=== PATIENT | male | born 1985 | race African-American/Black ===

== ENCOUNTER 2019-12-15 13:24 | Outpatient (REF) | payer MEDICAID, SELFPAY ==
--- NOTE | 2019-12-15 13:38 | US_ITS ---
EXAMINATION: US SCROTUM CLINICAL INFORMATION: Scrotal pain. COMPARISON: None TECHNIQUE: A sonogram of the scrotum was performed assessing pinedo-scale appearance and color Doppler flow. Spectral Doppler analysis of the arterial and venous flow were performed in the testes bilaterally. FINDINGS: RIGHT: Right testicle measures 3.66 x 1.78 x 2.73 cm, volume 9.30 mL. No focal testicular parenchymal lesions are visualized. Spectral Doppler analysis of the arterial and venous flow is normal in the right testis. Right epididymal head is normal in size. Small right varicocele is visualized. There is a small right hydrocele. Mild septation is seen in the right hydrocele. Right epididymal Doppler flow is normal. LEFT: Left testicle measures 3.81 x 1.64 x 2.60 cm, volume 8.49 mL. No focal testicular parenchymal lesions are visualized. Spectral Doppler analysis of the arterial and venous flow is normal in the left testis. Left epididymal head is normal in size. Small left varicocele is seen. There is a small left hydrocele. Left epididymal Doppler flow is normal. US/US scrotum IMPRESSION: Bilateral hydroceles with mild septation in the right hydrocele. Bilateral varicoceles. The testes are symmetrical and unremarkable.
== END 2019-12-15 13:25 | disposition home or self-care (01) ==
LOC: HO.US 13:24
PROVIDERS: Visit Provider Internal Medicine Rheumatology
DX: N49.2 Inflammatory disorders of scrotum (principal); N50.82 Scrotal pain
CPT/HCPCS: 76870

== ENCOUNTER 2020-07-04 19:06 | Emergency (ER) | payer MEDICAID, SELFPAY ==
[2020-07-04 19:28] VITALS: BP 127/71; PULSE 85; RESP 16; TEMP 36.6; O2SAT 99; BMI 25.8
--- NOTE | 2020-07-04 22:15 | ED.SKABFB ---
HPI - Skin/Abscess/Foreign Bdy General Chief complaint: Skin/Abscess/Foreign Body Stated complaint: neck pain Time Seen by Provider: 07/04/20 22:15 Source: patient Mode of arrival: ambulatory Limitations: no limitations History of Present Illness HPI narrative: Patient is a 35-year-old male with no significant past medical history who has an itchy rash on the left side of his neck and behind his left ear times 2-3 weeks. He has used Neosporin with no relief. He denies fevers. Patient denies using any new perfumes, lotions, detergents, soaps, new clothing, or shampoo. Related Data Allergies Allergy/AdvReac Type Severity Reaction Status Date / Time No Known Allergies Allergy Unverified 11/11/19 18:54 [No Known Allergies*] Review of Systems Review of Systems: Yes all other systems are reviewed and are negative FORMERLY [facility] Past Medical History Medical History No known health problems Social History Social History Advance Directives: No Physical Exam Vital Signs: Vital Signs: Last Vital Signs Temp 97.8 F 07/04/20 19:28 Pulse 85 07/04/20 19:28 Resp 16 07/04/20 19:28 BP 127/71 07/04/20 19:28 Pulse Ox 99 07/04/20 19:28 Body Mass Index 25.8 Const: General: cooperative, healthy appearing, comfortable and no acute distress Nutritional Appearance: average body habitus Orientation/consciousness: patient oriented x3 HENMT: Head: Yes normal to inspection Ears: hearing grossly normal bilaterally and external ear abnormal (3 small red bumps on left posterior earlobe) Eyes: General: appearance normal, both eyes and all related structures Skin: Other: 10 cm x 6 cm area of brownish pinedo patch of small bumps on the left side of neck Neuro: General: patient oriented x3 Discharge Plan Discharge Clinical Impression: Eczema Qualifiers: Eczema type: unspecified Qualified Code(s): L30.9 - Dermatitis, unspecified Patient Disposition: Home, Self-Care Instructions: Eczema (ED) Additional Instructions: Please use a petroleum based ointment 3 times a day, keeping the area moist will reduce the itchiness and help the rash resolved. Please do not take long hot showers and this may make the rash worse. It is not clearing up in the next week, please see your primary care doctor or marble and granite polisher.
== END 2020-07-04 22:34 | disposition home or self-care (01) ==
PROVIDERS: Emergency Provider Internal Medicine
DX: L30.9 Dermatitis, unspecified (principal)
CPT/HCPCS: 99282; 99284

== ENCOUNTER → 2020-08-07 10:43 | Outpatient (BNVA) | payer SELFPAY | PROVIDERS: Visit Provider Physician Assistant Medical | DX: Z02.79 Encounter for issue of other medical certificate (principal) ==

== ENCOUNTER 2021-01-26 12:57 | Outpatient (REF) | payer MEDICAID, SELFPAY ==
--- NOTE | ~2021-01-26 | XR_ITS ---
EXAMINATION: XR LUMBOSACRAL SPINE WITH OBLIQUES CLINICAL INFORMATION: Lumbago with sciatica, left-sided COMPARISON: None TECHNIQUE: AP, both oblique, and lateral views of the lumbar spine. Lateral view of the lumbosacral junction. FINDINGS: There is no fracture or subluxation. Vertebral body height and alignment maintained. Disc spaces are maintained. The sacroiliac joints are symmetric. The visualized sacrum is intact. Nonobstructive bowel gas pattern. XR/XR lumbar spine 4V min IMPRESSION: Unremarkable examination.
== END 2021-01-26 12:58 | disposition home or self-care (01) ==
LOC: HO.XRAY 12:57
PROVIDERS: PCP Nurse Practitioner; Visit Provider Nurse Practitioner
DX: M54.42 Lumbago with sciatica, left side (principal)
CPT/HCPCS: 72110

== ENCOUNTER 2021-07-19 14:30 | Outpatient (REF) | payer MEDICAID, SELFPAY ==
[2021-07-19 16:25] LABS: Alanine Aminotransferase 32 U/L (0-40); Albumin Level 4.3 g/dL (3.5-5.0); Alkaline Phosphatase 82 U/L (39-117); Anion Gap 12 (12-20); Aspartate Amino Transferase 19 U/L (5-37); Bilirubin Total 0.4 mg/dL (0.0-1.0); Blood Urea Nitrogen 18 mg/dL (9-16); Calcium 9.7 mg/dL (8.4-10.2); Carbon Dioxide 28 mmol/L (22-29); Chloride 104 mmol/L (96-108); Estimated Glomerular Filt Rate > 60; Glucose Random 85 mg/dL (60-115); Potassium 4.1 mmol/L (3.3-5.1); Sodium 140 mmol/L (135-145); Total Protein 7.3 g/dL (6.5-8.0)
== END 2021-07-19 14:31 | disposition home or self-care (01) ==
LOC: HO.LAB 14:30
PROVIDERS: PCP Nurse Practitioner; Visit Provider Nurse Practitioner
DX: K21.9 Gastro-esophageal reflux disease without esophagitis (principal); K59.00 Constipation, unspecified; R13.12 Dysphagia, oropharyngeal phase
CPT/HCPCS: 36415; 80053; 99202; 99212

== ENCOUNTER 2021-07-27 13:33 | Outpatient (REF) | payer MEDICAID, SELFPAY ==
--- NOTE | ~2021-07-27 | US_ITS ---
EXAMINATION: US ABDOMEN COMPLETE CLINICAL INFORMATION: Gastroesophageal reflux disease without esophagitis. COMPARISON: Ultrasound abdomen complete 05/13/2017. TECHNIQUE: Real-time imaging of the abdominal viscera. FINDINGS: PANCREAS: The majority of the pancreas is obscured by overlying bowel gas limiting its evaluation. ABDOMINAL AORTA: The proximal, mid, and distal segments are normal in caliber. INFERIOR VENA CAVA: Visualized portions are normal. LIVER: Normal. The liver is normal in size. The liver contour is normal. Parenchymal echogenicity is normal. No focal hepatic lesion. There is no intrahepatic biliary duct dilatation seen. GALLBLADDER: Normal. The gallbladder is physiologically distended without evidence of stones, sludge, polyps, wall thickening or pericholecystic fluid. COMMON BILE DUCT: Normal in caliber measuring 0.4 cm in diameter. RIGHT KIDNEY: Normal. No hydronephrosis. No renal calculi or focal parenchymal lesions. The kidney measures 9.5 cm in maximum dimension. LEFT KIDNEY: Normal. No hydronephrosis. No renal calculi or focal parenchymal lesions. The kidney measures 10.1 cm in maximum dimension. SPLEEN: Normal. The spleen measures 8.6 cm in maximum dimension. FREE FLUID: None. US/US abdomen complete IMPRESSION: No acute sonographic abnormalities with the caveat that the pancreas was suboptimally assessed.
== END 2021-07-27 13:34 | disposition home or self-care (01) ==
LOC: HO.US 13:33
PROVIDERS: Visit Provider Nurse Practitioner
DX: K21.9 Gastro-esophageal reflux disease without esophagitis (principal)
CPT/HCPCS: 76700

== ENCOUNTER 2022-06-18 08:20 | Day surgery (SDC) | payer MEDICAID, SELFPAY ==
--- NOTE | 2022-06-17 12:17 | HO.ANESPROP2 ---
Documented by User: Negra Duff NP 06/17/22 12:17 HPI - Anesthesia Eval Consult details Narrative: 37yo M for Upper Endoscopy PENDING SALE TO [facility] Active Problems Active Problems: All Active Problems (Updated 06/13/22 @ 12:46 by Eva Maurice RN) GERD (gastroesophageal reflux disease) (Acute) Depression (Acute) Hydrocele of testis (Acute) Low back pain (Acute) Constipation (Acute) Oropharyngeal dysphagia (Acute) Past Medical History Medical History (Updated 06/13/22 @ 12:46 by Eva Maurice RN) Costochondritis GERD (gastroesophageal reflux disease) History of herpes zoster History of vertigo Hx of migraines Surgical History Surgical History (Updated 06/13/22 @ 12:44 by Eva Maurice RN) H/O circumcision History of esophagogastroduodenoscopy (EGD) Social History Social History Patient Tobacco Use Status: Never used Tobacco Meds Allergies Allergy/AdvReac Type Severity Reaction Status Date / Time No Known Allergies Allergy Unverified 06/13/22 12:50 [No Known Allergies*] Home Medications Medication Instructions Recorded Confirmed Last Taken Type famotidine 40 mg tablet 40 mg PO BEDTIME 06/18/22 06/18/22 Unknown History Exam Exam Date and Time: June 17, 20221216 Assessment and Plan Assessment Anesthesia Assessment: Chart Reviewed Documented by User: Rashaun Chandler MD 06/18/22 17:50 PENDING SALE TO [facility] Past Medical History Medical History (Updated 06/13/22 @ 12:46 by Eva Maurice RN) Costochondritis GERD (gastroesophageal reflux disease) History of herpes zoster History of vertigo Hx of migraines Functional capacity: independent ambulation Family History Family history of problems with anesthesia: No Surgical History Surgical History (Updated 06/13/22 @ 12:44 by Eva Maurice RN) H/O circumcision History of esophagogastroduodenoscopy (EGD) History of Problems with Anesthesia: No Social History Social History Patient Tobacco Use Status: Never used Tobacco Meds Allergies Allergy/AdvReac Type Severity Reaction Status Date / Time No Known Allergies Allergy Unverified 06/13/22 12:50 [No Known Allergies*] Home Medications Medication Instructions Recorded Confirmed Last Taken Type famotidine 40 mg tablet 40 mg PO BEDTIME 06/18/22 06/18/22 Unknown History Exam Airway Mallampati Class: III TM Dist: >3cm Neck ROM: Full Loose/Missing/Broken Teeth: Yes (poor dentition , implants ) Assessment and Plan Assessment Anesthesia Assessment: Anesthesia Plan Discussed Final Anesthetic Review Family History of Problems with Anesthesia: No History of Problems with Anesthesia: No NPO: Yes ASA Class: II Final Preanesthetic Review: Meds/Allgs Chart Reviewed, Consent Obtained/Reviewed and Anes Risks/Benef Reviewed Patient Risk: Intermediate Procedure Risk: Intermediate Anesthetic Plan Anesthetic Plan: MAC: and Agree w/ Assess. and Plan Disposition: Standard PACU
[2022-06-18 09:12] VITALS: BMI 25.8
[2022-06-18 09:19] VITALS: BP 123/73; PULSE 90; RESP 18; TEMP 36.4; O2SAT 98
[2022-06-18] MEDS: Lactated Ringers 1,000 ML 100 ML IVCONT (09:29)
--- NOTE | 2022-06-18 10:04 | MHC.SHP ---
Pre-Procedural Eval Section A Date of Service: 06/18/22 Section B Chief Complaint: GERD Relevant Family History (Specify if Yes): No Relevant Social History: None Present Medications: see Short Stay Collaborative assessment Medical History: Significant History (Costochondritis GERD (gastroesophageal reflux disease) History of herpes zoster History of vertigo Hx of migraines) History of Previous Operations: Relevant previous surgery/procedure and date(s) (circumcision, EGD) Allergies: Allergies Allergy/AdvReac Type Severity Reaction Status Date / Time No Known Allergies Allergy Unverified 06/13/22 12:50 [No Known Allergies*] Review of Systems Sugical H&P ROS: Negative: Constitution, Cardiovascular, Respiratory, Neurological, Psychiatric, Hem-Onc, Allergic/Immunologic, Gastrointestinal, Genitourinary, Musculoskeletal, Integumentary, Endocrine and Eyes/Ears/Nose/Throat Exam Surgical H&P Exam: Normal: HEENT, Normal: Heart, Normal: Lungs, Normal: Extremities, Normal: Abdomen, Normal: Skin and Normal: Neurological Plan Diagnosis/Plan: Unchanged I have reviewed the history and physical and performed a pertinent physical examination on my patient. No changes have occurred unless specified. Time Spent With Patient Time: Total time managing care of this patient today ____ minutes.
--- NOTE | 2022-06-18 10:48 | W.PM.OPN ---
Operative Note Operative Note Date of Service: 06/18/22 Narrative: Procedure Description: EGD Indication: GERD Anesthesia: MAC FLEXIBLE TRANSORAL UPPER GASTROINTESTINAL ENDOSCOPY UPPER ENDOSCOPY Consent: Indications for the procedure and potential complications of bleeding, perforation, reaction to medications and missed diagnosis were discussed with the patient and informed consent was obtained. Instrument: Olympus GIF H 190 J mid size upper endoscope Monitoring: Vital signs and clinical assessment, continuous EKG monitoring, Pulse oximetry, Carbon Dioxide monitoring and blood pressure monitoring were done throughout the procedure. Procedure: The patient was placed in the left lateral decubitis position and pre-procedure medications were administered and a bite block was placed. The endoscope was inserted into the mouth and advanced under direct vision to the third part of duodenum. A careful inspection was made as the upper endoscope was withdrawn including a retroflexed examination of the proximal stomach; Findings and interventions are described below. Findings: Larynx:normal Esophagus: GE junction at 39 cm, diaphragm hiatus at 41 cm, consistent with 2 cm sliding hiatal hernia. Few streaks of erosive esophagitis noted with possible barretts, bx taken from GEJ and distal esophagus. Stomach: Patchy gastric erythema. Biopsies were obtained. Grade 2 flap valve on retroflexed examination of the cardia. Duodenum: Normal bulb and descending duodenum, bx taken Intervention: Biopsies as noted above Impression/Findings: erosive esophagitis, possible Barretts, gastritis small hiatal hernia PLAN: Reflux precautions consider changing to PPI, can await bx
[2022-06-18 11:01] VITALS: BP 108/52; PULSE 76; RESP 17; TEMP 36.4; O2SAT 100
[2022-06-18 11:16] VITALS: BP 112/47; PULSE 60; RESP 18; TEMP 36.5; O2SAT 100
== END 2022-06-18 12:05 | disposition home or self-care (01) ==
PROVIDERS: Visit Provider Internal Medicine Gastroenterology
PROC: 0DJ08ZZ Inspection of Upper Intestinal Tract, Via Natural or Artificial Opening Endoscopic (ICD-10-PCS; CPT 43235; principal; 2022-06-18 10:00)
DX: K21.9 Gastro-esophageal reflux disease without esophagitis (principal); K20.80 Other esophagitis without bleeding; K29.50 Unspecified chronic gastritis without bleeding; K44.9 Diaphragmatic hernia without obstruction or gangrene; Z79.899 Other long term (current) drug therapy
CPT/HCPCS: 43239; 88305; 88342; J3010

== ENCOUNTER → 2022-07-19 14:25 | Outpatient (BNVA) | payer MEDICAID, SELFPAY | PROVIDERS: Visit Provider Nurse Practitioner | DX: K21.9 Gastro-esophageal reflux disease without esophagitis (principal); K59.00 Constipation, unspecified; R13.12 Dysphagia, oropharyngeal phase | CPT/HCPCS: 99212 ==

== ENCOUNTER 2022-09-12 13:57 | Outpatient (REF) | payer MEDICAID, SELFPAY ==
[2022-09-12 17:02] LABS: Alanine Aminotransferase 66 U/L (0-40); Albumin Level 4.5 g/dL (3.5-5.0); Alkaline Phosphatase 80 U/L (39-117); Aspartate Amino Transferase 31 U/L (5-37); Bilirubin Direct 0.2 mg/dL (0.0-0.5); Bilirubin Total 0.5 mg/dL (0.0-1.0); Gamma Glutamyl Transpeptidase 126 U/L (11-51); Total Protein 7.4 g/dL (6.5-8.0)
[2022-09-12 17:08] LABS: Vitamin D 25-OH Total 86.2 ng/mL (>30)
[2022-09-12 18:20] LABS: Appearance Urine Clear; Color Urine Yellow; Glucose Urine UA Negative (Negative); Leukocyte Esterase Urine Negative (Negative); Nitrite Urine Negative (Negative); Urine Blood Negative (Negative); Urine Ketones Negative (Negative); Urine Protein Negative (Neg-Trace)
[2022-09-12 18:28] LABS: Bacteria Urine None Seen (None Seen); Hyaline Casts Urine 0-2 /LPF (0-2); RBC Urine 0-2 /HPF (0-2); Squamous Epithelial Cell Urine 0-2 /HPF (0-2); WBC Urine 0-5 /HPF (0-5)
[2022-09-12 18:38] LABS: Creatinine Urine 140.76 mg/dL; Microalbum/Creatinine Ratio Ur 5.6 ug/mg cr
== END 2022-09-12 13:58 | disposition home or self-care (01) ==
LOC: HO.HHCL 13:57
PROVIDERS: Visit Provider Nurse Practitioner Primary Care
DX: Z00.00 Encounter for general adult medical examination without abnormal findings (principal); R82.90 Unspecified abnormal findings in urine; R79.89 Other specified abnormal findings of blood chemistry
CPT/HCPCS: 36415; 80076; 81001; 82043; 82306; 82977

== ENCOUNTER 2022-11-07 15:53 | Outpatient (REF) | payer MEDICAID, SELFPAY ==
--- NOTE | ~2022-11-07 | US_ITS ---
EXAMINATION: US SCROTUM CLINICAL INFORMATION: Right testicular pain. COMPARISON: Ultrasound scrotum 12/15/2019. TECHNIQUE: A sonogram of the scrotum was performed assessing pinedo-scale appearance and color Doppler flow. Spectral Doppler analysis of the arterial and venous flow were performed in the testes bilaterally. FINDINGS: RIGHT: Right testicle measures 3.5 x 1.9 x 2.2 cm, volume 7.8 mL. No focal testicular parenchymal lesions are visualized. Spectral Doppler analysis of the arterial and venous flow is normal in the right testis. Right epididymal head is normal in size. Previous exam of 12/16/2019 demonstrated bilateral varicoceles which are less well demonstrated on the current exam. Moderate complex right hydrocele with septations. Previous exam also demonstrated a right hydrocele with septation. Right epididymal Doppler flow is normal. LEFT: Left testicle measures 3.7 x 2.0 x 1.9 cm, volume 7.5 mL. No focal testicular parenchymal lesions are visualized. Spectral Doppler analysis of the arterial and venous flow is normal in the left testis. Left epididymal head is normal in size. Previous exam of 12/16/2019 demonstrated bilateral varicoceles which are less well demonstrated on the current exam. Small left hydrocele. Left epididymal Doppler flow is normal. US/US scrotum IMPRESSION: 1. Moderate complex right hydrocele with septations. Previous exam also demonstrated a right hydrocele with septation. 2. Small left hydrocele. 3. Left appendix testis visualized. 4. Previous exam of 12/16/2019 demonstrated bilateral varicoceles which are less well demonstrated on the current exam.
== END 2022-11-07 15:54 | disposition home or self-care (01) ==
LOC: HO.US 15:53
PROVIDERS: Visit Provider Emergency Medicine
DX: N50.811 Right testicular pain (principal)
CPT/HCPCS: 76870

== ENCOUNTER 2024-05-29 10:33 | Outpatient (REF) | payer OTHER, SELFPAY ==
--- OUTSIDE RECORDS SUMMARY | 2024-05-29 10:36 | XMS_ITS | Clinical Summary ---
Author Organization [employer] Address [address] [place] [address] 7 [place] [address] Care Team Providers Care Home Decorator Name Role Phone Mary Harriett REED Primary Care Provider [phone] Allergies No known active allergies Medications naproxen (Naprosyn) 500 MG tablet Take 1 tablet (500 mg) by mouth if needed in the morning and at bedtime for mild pain. 40 tablet 1 05/07/19 25 026 Active Diclofenac Sodium 1 % gel Apply 2 g topically if needed in the morning, at noon, in the evening, and at bedtime (pain). 150 g 1 05/07/19 25 Active acetaminophen (Tylenol 8 Hour) 650 MG ER tablet Take 1 tablet (650 mg) by mouth every 8 (eight) hours if needed for mild pain. Do not crush, chew, or split. 40 tablet 1 05/07/19 25 025 Active baclofen (Lioresal) 10 MG tablet Take 1 tablet (10 mg) by mouth if needed in the morning, at noon, and at bedtime for muscle spasms. 60 tablet 1 05/07/19 25 025 Active esomeprazole (NexIUM) [address] capsuleIndicat ions:Erosive esophagitis Take 1 capsule (20 mg) by mouth before breakfast. Do not open capsule. 90 capsule 1 05/28/19 25 026 Active esomeprazole (NexIUM) [address] capsuleIndicat ions:Gastroeso phageal reflux disease with esophagitis without hemorrhage Take 1 capsule (20 mg) by mouth Once daily 30-60 minutes before meal. Do not open capsule. 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, gastritis, hiatal hernia Follows / [facility] [place] [place] [facility] Nexium daily Depressive disorder 05/09/2021 Gastroesophageal reflux disease 05/09/2021 Recurrent low back pain 10/30/2017 Resolved Problems Problem Noted Date Diagnosed Date Resolved Date Prostatic pain 09/23/2021 03/14/2023 Encounters Date Type Department Care Team Description 05/27/2024 10:30 AM EDT Office Visit [facility] [address] [place] [phone] Harriett Hernandez ANP Erosive esophagitis (Primary Dx); Fatigue, unspecified type; Impacted cerumen of right ear; Healthcare maintenance; Routine screening for STI (sexually transmitted infection) 05/27/2024 Patient Outreach [address] [address] Harriett Hernandez ANP Care Coordination (CHW outreach for SDOH PT-1 and food needs-referral completed /) 05/27/2024 Telephone [facility] [address] [place] [address] [phone] Joanie Diane MA positive sdoh 05/27/2024 Travel 05/18/2024 Patient Outreach [facility] [address] [place] [address] [phone] Harriett Hernandez ANP Pre-visit Planning (Pre-visit planning - LVM ) 05/06/2024 1:20 PM EDT Office Visit [facility] [address] [place] [phone] Lara Price DO Acute bilateral low back pain without sciatica (Primary Dx) 05/06/[address] [phone] Harriett Hernandez ANP Nurse Triage from Last 3 Months Social History Tobacco Use Types Packs/Day Years Used Date Smoking Tobacco: Never Smokeless Tobacco: Never Tobacco Cessation:Counseling Given: Not Answered Alcohol Use Standard Drinks/Week Comments Not Currently 0 (1 standard drink = 0.6 oz pur e alcohol) Depression Answer Date Recorded Patient Health Questionnaire-9 Score 11 05/27/2024 Patient Health Questionnaire-9 Score 11 05/27/2024 Last PHQ-9: Questionnaire Data Not on file 0 05/27/2024 Housing Stability Answer Date Recorded What is your housing situation today? I have rasheeda flowers 05/27/[address] you li ve. Do you have problems with any of the following? Mold 05/27/2024 Food Insecurity Answer Date Recorded Within the past 12 months, y ou worried that your food would run out before you got money to buy more: Sometimes True 2024 Within the past 12 months,th e food you bought just didn't last and you didn't have enough money to get more: Sometimes True 05/27/2024 Transportation Answer Date Recorded In the past 12 months, has l ack of transportation kept you from medical appts, meetings, work or from getting things needed for daily living? No 12/30/2022 Utilities Answer Date Recorded In the past 12 months, has t he electric, gas, oil or water company threatened to shut off services in your home? No 05/27/2024 Depression Answer Date Recorded Patient Health Questionnaire-2 Score 2 05/27/2024 Internet Access Answer Date Recorded Internet Access Q1 Yes 05/27/2024 Internet Access Q2 Not on file 05/27/2024 Sex and Gender Information Value Date Recorded Sex Assigned at Male 12/24/2021 10:29 AM EDT Legal Sex Male 10:29 AM EDT Gender Identity Male 12/24/2021 10:29 AM EDT Sexual Orientation Choose not to disclose 2021 10:29 AM EDT Last Filed Vital Signs Vital Sign Reading Time Taken Comments Blood Pressure 123/73 05/27/2024 10:56 AM EDT Pulse 85 05/27/2024 10:56 AM EDT Temperature 36.6 ??C (97.8 ??F) 05/27/2024 1 0:56 AM EDT Respiratory Rate 14 05/27/2024 10:5 6 AM EDT Oxygen Saturation 98% 05/27/2024 10: 56 AM EDT Inhaled Oxygen Concentration - - Weight 82.5 kg (181 lb 12.8 oz) 025 10:56 AM EDT Height 173 cm (5' 8.11 ) 05/27/2024 10: 56 AM EDT Body Mass Index 27.55 05/27/2024 10:56 AM EDT Plan of Treatment Upcoming Encounters Date Type Department Care Team (Late st Contact Info) Description 08/26/2024 2:00 PM EDT Office Visit [facility] [address] [place], [place] [phone] Harriett Hernandez ANP [address] [place], [place] [phone] Health Maintenance Due Date Last Done Comments Family Planning (PISQ) 2002 DTaP/Tdap/Td Vaccines (1 - Tdap) 2006 Hepatitis B Vaccines (1 of 3 - 19+ 3-dose series) 2006 COVID-19 Vaccine (2023-2 5 season) 2023 Influenza Vaccine (#1) 2023 SDOH Screening 03/05/2024 03/05/2023 Depression Monitoring (PHQ-9) 11/26/2024, 05/27/2024 Alcohol/Substance Use Screening 05/27/2025 05/27/2024 Depression Screening 05/27/2025 05/27/2024, 05/27/2024 Tobacco Screening 05/27/2025 05/27/2024 Lipid Panel 04/22/2027 04/22/2022, 07/06/2021, 05/09/2021 Zoster Vaccines (1 of 2) 2037 RSV Patients and Patients Aged 60 years or older (1 - 1-dose 75+ series) 2062 HIV Screening Completed 07/06/2021 Hepatitis C Screening Completed 07/06/2021 HIB Vaccines Aged Out No longer eligi ble based on patient's age to complete this topic HPV Vaccines Aged Out No longer eligi ble based on patient's age to complete this topic Hepatitis A Vaccines Aged Out No long er eligible based on patient's age to complete this topic IPV Vaccines Aged Out No longer eligi ble based on patient's age to complete this topic Meningococcal Vaccine Aged Out No toby gustavo eligible based on patient's age to complete this topic Pneumococcal Vaccine: Pediatrics (0 to 5 Years) and At-Risk Patients (6 to 49) Years) Aged Out No longer eligible b ased on patient's age to complete this topic RSV under 20 months Aged Out No longe r eligible based on patient's age to complete this topic Rotavirus Vaccines Aged Out No longer eligible based on patient's age to complete this topic Procedures Procedure Name Priority Date/Time Associated Diagnosis Comments LIPID PANEL, STANDARD Routine 04/22/2022 8:47 AM EST High cholesterol ZZZ HISTORICAL HEPATITIS C AB W/REFL TO HCV RNA, QN, PCR Routine 07/06/2021 8:40 AM EDT HIV 1/2 ANTIGEN/ANTIBODY, FOURTH GENERATION W/RFL Routine 07/06/2021 8:40 AM EDT from Last 3 Months or Most Recently Relevant to Health Maintenance Results * (ABNORMAL) Lipid Panel, Standard (04/22/2022 8:47 AM EST) Cholesterol, Total 215(H) <200 mg/dL [employer] [place] [facility] HDL Cholesterol 61 > OR = 40 mg/dL [employer] [facility] [facility] Triglycerides 93 <150 mg/dL [employer] [facility] [place] [facility] LDL Cholesterol 135(H) mg/dL (calc) [employer] [place] [facility] Comment: Reference range: <100 Desirable range <100 mg/dL for primary prevention; ?? <70 mg/dL for patients with CHD or diabetic patients with > or = 2 CHD risk factors. LDL-C is now calculated using the Dre-Hali calculation, which is a validated novel method providing better accuracy than the Friedewald equation in the estimation of LDL-C. Dre BRYAN et al. NAT. 2013;310(19): 3349-4161 (http://education.[employer]/faq/GPO983) Chol/HDLC Ratio 3.5 <5.0 (calc) [facility] Non-HDL Cholesterol 154(H) <130 mg/dL (calc) [employer] Comment: For patients with diabetes plus 1 major ASCVD risk factor, treating to a non-HDL-C goal of <100 mg/dL (LDL-C of <70 mg/dL) is considered a therapeutic option. Blood Venous blood specimen / Unknown 04/22/2022 8:47 AM EST 04/22/2022 8:47 AM EST Narrative [facility] - 04/23/2022 1:51 AM EST FASTING:UNKNOWN FASTING: UNKNOWN Harriett [facility] LAB BLOOD ORDERABLES Final Resul t Performing Organization Address City/[facility]/ZIP Co de Phone Number [facility] [address] [place] [address], [place] [address] [employer] [place] [facility] [address] [facility], (Nl2) [place] [address] * HEPATITIS C AB W/REFL TO HCV RNA, QN, PCR (07/06/2021 8:40 AM EDT) HEPATITIS C ANTIBODY NON-REACT LIDA NON-REACT LIDA [facility] INDEX 0.01 <1.00 [facility] Comment: ?? HCV antibody was non-reactive. There is no laboratory ?? evidence of HCV infection. ?? In most cases, no further action is required. However, if recent HCV exposure is suspected, a test for HCV RNA (test code 25697) is suggested. ?? For additional information please refer to http://education.[employer]/faq/MNP14p8 (This link is being provided for informational/ educational purposes only.) ?? 07/06/2021 8:40 AM EDT us Monse Akers GREEN HOUSE MANAGER HISTORICAL/NON ORDERABLE LABS F inal Result [facility] [address] * HIV 1/2 ANTIGEN/ANTIBODY,FOURTH GENERATION W/RFL (07/06/2021 8:40 AM EDT) HIV-1/2 ANTIGEN AND ANTIBODIES, 4TH GENERATION W/ REFLEX NON-REACT LIDA NON-REACT LIDA [facility] Comment: HIV-1 antigen and HIV-1/HIV-2 antibodies were not detected. There is no laboratory evidence of HIV infection. ?? PLEASE NOTE: This information has been disclosed to you from records whose confidentiality may be protected by state law. ??If your state requires such protection, then the state law prohibits you from making any further disclosure of the information without the specific written consent of the person to whom it pertains, or as otherwise permitted by law. A general authorization for the release of medical or other information is NOT sufficient for this purpose. ? For additional information please refer to http://education.[employer]/faq/WAW237 (This link is being provided for informational/ educational purposes only.) ? The performance of this assay has not been clinically validated in patients less than 2 years old. ?? 07/06/2021 8:40 AM EDT us Monse Akers NP LAB BLOOD ORDERABLES Final Resu lt [facility] [address] from Last 3 Months or Most Recently Relevant to Health Maintenance Insurance [id number] Care Teams Home Decorator Relationship Specialty Start Date End Date Harriett Hernandez ANP [address] [place] [phone] PCP - General Family Medicine 10/18/21
--- OUTSIDE RECORDS SUMMARY | 2024-05-29 10:36 | XMS_ITS | Encounter Summary ---
Author Organization [employer] Address [address] [place] [address] 7 [place] [address] Care Team Providers Care Hair Specialist Name Role Phone Harriett Hernandez Primary Care Provider [phone] Reason for Visit * Reason Comments Annual Exam Encounter Details Date Type Department Care Team ([facility] st Contact Info) Description 05/27/2024 10:30 AM EDT Office Visit [facility] [address] [place], [place] [phone] Harriett Hernandez ANP [address] [place], [place] [phone] Erosive esophagitis (Primary Dx); Fatigue, unspecified type; Impacted cerumen of right ear; Healthcare maintenance; Routine screening for STI (sexually transmitted infection) Social History Tobacco Use Types Packs/Day Years [...] not to disclose 2021 10:29 AM EDT documented as of this encounter Last Filed Vital Signs Vital Sign Reading [...] Mass Index 27.55 05/27/2024 10:56 AM EDT documented in this encounter Plan of Treatment Upcoming Encounters Date Type Department Care Team (Late st Contact Info) Description 08/26/2024 2:00 PM EDT Office Visit [facility] [address] [place] [address] Harriett Hernandez ANP [address] [place] [address] Scheduled Orders Name Type Priority Associated Diagnoses Orde r Schedule Ear cerumen removal Procedures Routine Impacted cerumen of right ear Expected: 05/27/2024 (Approximate), Expires: 05/27/2025 Lipid Panel, Standard Lab Routine Fatigue, unspecified type Expected: 05/27/2024 (Approximate), Expires: 05/27/2025 Comprehensive Metabolic Panel Lab Routine Fatigue, unspecified type Expected: 05/27/2024 (Approximate), Expires: 05/27/2025 Hemoglobin A1c Lab Routine Fatigue, unspecified type Expected: 05/27/2024 (Approximate), Expires: 05/27/2025 CBC auto differential Lab Routine Fatigue, unspecified type Expected: 05/27/2024 (Approximate), Expires: 05/27/2025 TSH W/Reflex to FT4 Lab Routine Fatigue, unspecified type Expected: 05/27/2024 (Approximate), Expires: 05/27/2025 HIV-1/2 Antigen and Antibodies, Fourth Generation, with Reflexes Lab Routine Routine screening for STI (sexually transmitted infection) Expected: 05/27/2024 (Approximate), Expires: 05/27/2025 RPR (Monitor) with Reflex to??Titer Lab Routine Routine screening for STI (sexually transmitted infection) Expected: 05/27/2024 (Approximate), Expires: 05/27/2025 Hepatitis C Antibody with Reflex to HCV, RNA, Quantitative, Real-Time PCR Lab Routine Routine screening for STI (sexually transmitted infection) Expected: 05/27/2024 (Approximate), Expires: 05/27/2025 Urinalysis, Complete, with Reflex to Culture Lab Routine Fatigue, unspecified type Expected: 05/27/2024 (Approximate), Expires: 05/27/2025 Ear Cerumen Removal Procedures Routine Impacted cerumen of right ear Ordered: 05/27/2024 documented as of this encounter Visit Diagnoses Diagnosis Erosive esophagitis- Primary Other esophagitis Fatigue, unspecified type Impacted cerumen of right ear Impacted cerumen Healthcare maintenance Routine screening for STI (sexually transmitted infection) Screening examination for venereal disease documented in this encounter Additional Health Concerns Assessment Noted Time PHQ-9 Depression Total Score: 11 025 11:52 AM EDT documented as of this encounter Care Teams Hair Specialist Relationship Specialty Start Date End Date Harriett Hernandez ANP [address] [place] [address] PCP - General Family Medicine 10/18/21 documented as of this encounter
--- OUTSIDE RECORDS SUMMARY | 2024-05-29 10:36 | XMS_ITS | Encounter Summary ---
Author Organization [employer] Address [address] [place] [address] 7 [place] [address] Care Team Providers Care Electromechanical Technologist Name Role Phone HernandezHarriett Primary Care Provider [phone] Reason for Visit * Reason Onset Date Comments positive sdoh 05/27/2024 Encounter Details Date Type Department Care Team ([facility] st Contact Info) Description 05/27/2024 Telephone [facility] [address] [place] [address] Joanie Diane MA positive sdoh Social History Tobacco Use Types Packs/Day Years Used Date Smoking Tobacco: Never Smokeless Tobacco: Never Alcohol Use Standard Drinks/Week Comments Not Currently [...] AM EDT documented as of this encounter Miscellaneous Notes * Telephone Encounter - Joanie Diane MA - 05/27/2024 11:54 AM EDT Positive sdoh documented in this encounter Plan of Treatment Upcoming Encounters Date Type Department Care Team (Late st Contact Info) Description 08/26/2024 2:00 PM EDT Office Visit [facility] [address] [place] [address] Harriett Hernandez ANP [address] [place] [address] documented as of this encounter Visit Diagnoses Not on filedocumented in this encounter Additional Health Concerns Assessment Noted Time PHQ-9 Depression Total Score: 11 025 11:52 AM EDT documented as of this encounter Care Teams Electromechanical Technologist Relationship Specialty Start Date End Date Harriett Hernandez ANP [address] [place] [address] PCP - General Family Medicine 10/18/21 documented as of this encounter
--- OUTSIDE RECORDS SUMMARY | 2024-05-29 10:36 | XMS_ITS | Encounter Summary ---
Author Organization [employer] Address [address] [place] [address] [address] [place] [address] Care Team Providers Care Building Supplies Salesperson Retail Name Role Phone Harriett Hernandez Primary Care Provider [phone] Reason for Visit * Reason Comments Care Coordination CHW outreach for SDO H PT-1 and food needs-referral completed Encounter Details Date Type Department Care Team (Latest Contact Info) Description 05/27/2024 Patient Outreach [facility] [address] [place], [place] [phone] Harriett Hernandez ANP [address] [place] [address] Care Coordination (CHW outreach for SDOH PT-1 and food needs-referral completed /) Social History Tobacco Use Types Packs/Day Years [...] AM EDT documented as of this encounter Progress Notes * Bruce Washington - 05/27/2024 1:10 PM EDT CHW Bruce Washington, placed outbound call to patient for assistance with SDOH as a referral was received by the provider. Patient's name and were confirmed. Patient screened positive for the following SDOH food insecurities. Patient states family in on SNAP program at this time. CHW referral patient to the local list of pantries in the area for help. PT-1 requested was send out in behalf of patient for futures appt. Patient verbalizes understanding, and able to agree with plan to follow up.Patient educated on extended clinic hours on Mondays through Wednesdays, and Walk-In Urgent Care Located in [facility] of [facility]. Patient provided with after-hours line for [facility], , which offer night time triage service and option to transfer to electronic pagination system operator provider if needed. documented in this encounter Plan of Treatment Upcoming Encounters Date Type Department Care Team (Late st Contact Info) Description 08/26/2024 2:00 PM EDT Office Visit [facility] MED[facility]INE [address] [place] [phone] Harriett Hernandez ANP [address] [place] [address] documented as of this encounter Visit Diagnoses Not on filedocumented in this encounter Additional Health Concerns Assessment Noted Time PHQ-9 Depression Total Score: 11 025 11:52 AM EDT documented as of this encounter Care Teams Building Supplies Salesperson Retail Relationship Specialty Start Date End Date Harriett Hernandez ANP [address] [place] [address] PCP - General Family Medicine 10/18/21 documented as of this encounter
--- OUTSIDE RECORDS SUMMARY | 2024-05-29 10:36 | XMS_ITS | Encounter Summary ---
Author Organization [employer] Address [address] [place] [address] 7 [place] [address] Care Team Providers Care Four Corner Stayer Machine Operator Name Role Phone Harriett Hernandez Primary Care Provider [phone] Encounter Details Date Type Department Care Team (Latest Contact Info) Description 03/29/2019 Abstract [facility] Dental, Provider, DDS Social History Tobacco Use Types Packs/Day Years Used Date Smoking Tobacco: Never Assessed Sex and Gender Information Value Date Recorded Sex Assigned at Male 12/24/2021 10:29 AM EDT Legal Sex Male 10:29 AM EDT Gender Identity Male 12/24/2021 10:29 AM EDT Sexual Orientation Choose not to disclose 2021 10:29 AM EDT documented as of this encounter Plan of Treatment Upcoming Encounters Date Type Department Care Team (Late st Contact Info) Description 08/26/2024 2:00 PM EDT Office Visit [facility] [address] [place] [address] Harriett Hernandez ANP [address] [place] [address] documented as of this encounter Visit Diagnoses Not on filedocumented in this encounter Care Teams Four Corner Stayer Machine Operator Relationship Specialty Start Date End Date Harriett Hernandez ANP [address] [place] [address] PCP - General Family Medicine 10/18/21 documented as of this encounter
--- OUTSIDE RECORDS SUMMARY | 2024-05-29 10:36 | XMS_ITS | Data Portability ---
Author Organization [facility] [address] Address [address] [place] [address] Assessment No assessment recorded. Plan of Treatment Reminders Order Date Submit Date Provider Last Modified By Organization Details Last Modified Time Details Appointments None recorded. Lab rapid SARS CoV 2 Ag, QL IA, respiratory specimen [id number], [id number], 12:13:28 Referral None recorded. Procedures None recorded. Surgeries None recorded. Imaging None recorded. Medication Orders None recorded. Patient TargetsNo targets recorded. Patient Instructions Encounter Date Encounter Id Patient Instructions Last Modified By Organization Details Last Modified Time 04/02/2022 [id number] coronavirus (covid-19): care instructions [email or web address] Not available 04/02/2022 12:13:28 You have been Diagnosed with COVID - your Rapid COVID test was positive. I recommend the following to help with your symptoms of this viral infection: 1. Take Ibuprofen or Tylenol if you do not have any allergies to these medications. If you take a blood thinner you should not take NSAIDS like Ibuprofen. These medication will help with the inflammation in your respiratory tract which should help the cough. 2. I suggest taking a Antihistamine (loratadine or cetirizine or Perla or benadryl) - to help with the congestion. I would advise this over a decongestant. 3. Saline Nasal Lookout 4. Salt Water Gargles. I would be seen again immediately in the Emergency Room if you develop: 1. Shortness of Breath 2. Chest Pain 3. Fever > 101.0 4. Lethargy or Confusion. You should notify you PCP that you have been diagnosed with this infection. Below is the current CDC guidelines. Updated CDC Guidelines for Quarantine and Testing - 03/03/2021 If You Test Positive for COVID-19 (Isolate) Everyone, regardless of vaccination status. 1. Stay home for 5 days. 2. If you have no symptoms or your symptoms are resolving after 5 days, you can leave your house. 3. Continue to wear a mask around others for 5 additional days. If you have a fever or feel worse, continue to stay home until your fever resolves. If You Were Exposed to Someone with COVID-19 (Quarantine) If you: Have been boosted OR Completed the primary series of Pfizer or Moderna vaccine within the last 6 months. OR Completed the primary series of J&J vaccine within the last 2 months 1. Wear a mask around others for 10 days. 2. Test on day 5, if possible. 3. If you develop symptoms get a test and stay home. If you: Completed the primary series of Pfizer or Moderna vaccine over 6 months ago and are not boosted OR Completed the primary series of J&J over 2 months ago and are not boosted OR Are un-vaccinated 1. Stay home for 5 days. After that continue to wear a mask around others for 5 additional days. 2. Test on day 5, if possible. If you develop symptoms get a test and stay home Quarantine Calculation: Day 0: is the first day of symptoms or a positive viral test. Day 1: is the first full day after your symptoms developed or when your test specimen was collected. Exposure: Day 1: is the first full day after your last known contact with a person that tested positive for COVID 19. [facility] Thank you for visiting [facility] today, please feel free to call our office you have any questions or concerns. [email or web address] Not available 04/02/2022 12:07:36 Reason for Referral None Reported. Results Created Date Observation Date Name Description Value Unit Range Abnormal Flag Note LastModifiedBy Organization Detail LastModifiedTime 04/02/1904/02/2022 rapid SARS CoV 2 Ag, QL IA, respi rator y speci men Unknown Analyte Normal =Negat mayo Not Available kelly [address], [address], 04/02/2022 11:52:51 04/02/1904/02/2022 rapid SARS CoV 2 Ag, QL IA, respi rator y speci men Unknown Analyte positi ve Not Available [address] [place] [address], [id number], 04/02/2022 11:52:51 Result Notes None recorded. Problems No Known Problems Medical Equipment None Reported. Allergies No known drug allergies Medications Not known to be on any medication Vitals Date Recorded Body height Body mass index (BMI) Body weight Body temperature Respiratory rate Oxygen saturation Oxygen saturation in Arterial blood by Pulse oximetry Heart rate Systolic blood pressure Diastolic blood pressure Provider Name and Address Organization Details Last Updated DateTime 3 175.26 cm 25.8 kg/m2 13613.6 6 g 97.9 [degF] 18 /min 96 % 96 % 94 /min 119 mm[Hg] 79 mm[Hg] JET FLYNN [place] - [facility] 11:56:37 Social History Question Answer Notes LastModified by Organizat ion Details LastModified Time What Is Your Level Of Alcohol Consumption? None Information not available 04/02/2022 Are You Currently Employed? Yes Information not available 04/02/2022 Have You Had Direct Contact, Or Contact During Intimacy, With Monkeypox Rash, Scabs, Or Body Fluids From A Person With Monkeypox? No Information not available 04/02/2022 Do You Use Any Illicit Or Recreational Drugs? No Information not available 04/02/2022 Have You Recently Traveled Abroad? No Information not available 04/02/2022 Are You Currently In School? No Information not available 04/02/2022 Do You Or Have You Ever Used Any Other Forms Of Tobacco Or Nicotine? No Information not available 04/02/2022 Sex: Unknown Functional Status None recorded. Mental Status None recorded. Family History Relationship Description Onset Age of this Age Resolved Age Notes LastModified by Organization Details LastModified Time Father No current problems or disability Not available 08/2022 11:53:54 Mother No current problems or disability Not available 08/2022 11:53:54 Medical History No medical history recorded. Past Encounters Encounter ID Performer Location Encounter Start Date Encounter Closed Date Diagnosis/Indication Diagnosis SNOMED-CT Code Diagnosis ICD10 Code Diagnosis Note [id number] [facility] [address] [place] [address] 06/29/2021 13:14:20 06/29/2021 14:47:34 [id number] [facility] [address] [place] [address] 10/20/2021 17:01:47 10/20/2021 19:08:17 [id number] [address] [place] [address] 06/29/2021 13:14:26 06/29/2021 14:47:37 [id number] [facility] [address] [place] [address] 04/02/2022 11:13:18 04/02/2022 12:18:09 Exposure to SARS-CoV-2 954176249 Z20.822 Health Concerns Section Related Observation LastModified by Organization Detai ls LastModified Time None Recorded Concern Status LastModified by Organization Details LastModified Time None Recorded Advance Directives Directive None Recorded Payers Encounter Date Sequence Insurance Name Policy Number Policy Alves Covered Member ID Alves Member ID Guarantor Name 04/02/2022 1 [place] [facility] Fracisco Infante [id number] Fracisco Infante Notes Date Note Type Note Provider Name and Address Organization Details Recorded Time 3 text/html Upper Respiratory Symptoms UCReported bypatient.Source of patient informationInformation obtained from patient; Patient arrived at Urgent Care ambulatory Location:head Quality:hurts to swallow;dry cough;congestion Severity:mild Onset/Timin03/31/2022 Modifying Factors:OTC medication Associated Symptoms:no sputum production; no shortness of breath; no wheezing; no vomiting;fever;sore throat;headacheNotes:The patient has had covid before. Symptoms started on Friday. Symptoms are worsening. Clayton very tired. Mild sore throat and congestion. Stayed in bed all day yesterday. PARKER LAWSON [address] [place], [address], [place] - [facility] 04/02/2022 12:15:18
--- OUTSIDE RECORDS SUMMARY | 2024-05-29 10:36 | XMS_ITS | Encounter Summary ---
Author Organization [employer] Address [address] [facility] [address] [place] [address] Care Team Providers Care Tractor Operator Battery Name Role Phone Mary Harriett REED Primary Care Provider [phone] Encounter Details Date Type Department Care Team (Latest Contact Info) Description 05/27/2024 Travel Social History Tobacco Use Types Packs/Day Years [...] Description 08/26/2024 2:00 PM EDT Office Visit [facility] [address] [place] [address] Harriett Hernandez ANP [address] [place] [address] documented as of this encounter Visit Diagnoses Not on filedocumented in this encounter Additional Health Concerns Assessment Noted Time PHQ-9 Depression Total Score: 11 025 11:52 AM EDT documented as of this encounter Care Teams Tractor Operator Battery Relationship Specialty Start Date End Date Harriett Hernandez ANP [address] [place] [address] PCP - General Family Medicine 10/18/21 documented as of this encounter
[2024-05-29 10:56] LABS: MANUAL DIFF FLAG NO
[2024-05-29 11:14] LABS: Basophils Percent Auto 0.4 % (0-2); Eosinophils Absolute Auto 0.1 X10*3/uL (0.0-0.4); Eosinophils Percent Auto 0.7 % (0-4); Hematocrit 47.3 % (42.0-52.0); Hemoglobin 16.3 g/dl (14.0-18.0); Imm Gran Abs Auto 0.05 X10*3/uL (0.00-0.03); Imm Gran Pct Auto 0.6 % (0.0-0.4); Lymphocytes Absolute Auto 3.3 X10*3/uL (1.2-4.9); Lymphocytes Percent Auto 39.9 % (20-40); Mean Corpuscular HGB Conc 34.5 g/dl (31.0-36.0); Mean Corpuscular Hemoglobin 28.7 pg (27.0-33.0); Mean Corpuscular Volume 83.3 fL (80.0-98.0); Mean Platelet Volume 9.4 fL (9.4-12.4); Monocytes Absolute Auto 0.7 X10*3/uL (0.1-1.2); Monocytes Percent Auto 8.8 % (2-11); Neutrophils Absolute Auto 4.2 x10*3/uL (2.0-8.3); Neutrophils Percent Auto 49.6 % (45-73); Platelet Count 200 X10*3/uL (160-400); Red Blood Count 5.68 X10*6/uL (4.60-5.80); Red Cell Distribution Width 13.2 % (11.0-16.0); White Blood Count 8.4 X10*3/uL (4.8-10.8)
[2024-05-29 11:24] LABS: Estimated Average Glucose 103 mg/dL; Hemoglobin A1C 147.2653 umol/L; Hemoglobin A1c % 5.2 % (<6.0); Total Hemoglobin (HGBA1C) 4350.0918 umol/L
[2024-05-29 12:03] LABS: Alanine Aminotransferase 55 U/L (0-40); Albumin Level 4.4 g/dL (3.5-5.0); Alkaline Phosphatase 80 U/L (39-117); Anion Gap 9 (12-20); Aspartate Amino Transferase 44 U/L (5-37); Bilirubin Total 0.7 mg/dL (0.0-1.0); Blood Urea Nitrogen 16 mg/dL (9-16); Calcium 9.1 mg/dL (8.4-10.2); Carbon Dioxide 27 mmol/L (22-29); Chloride 108 mmol/L (96-108); Cholesterol 230 mg/dL (<200); Estimated Glomerular Filt Rate > 60; Glucose Random 77 mg/dL (60-115); HDL Cholesterol 55 mg/dL (>40); LDL Cholesterol Calculated 159 mg/dL (<100); Potassium 3.7 mmol/L (3.3-5.1); Sodium 140 mmol/L (135-145); Total Protein 7.3 g/dL (6.5-8.0); Triglycerides 84 mg/dL (<150)
[2024-05-29 12:11] LABS: HIV AB/AG Nonreactive (Nonreactive); HIV Num 1 0.06 S/CO (0.00-0.99); ~HepC Num1 0.09 S/CO (0.00-0.79); ~Hepatitis C Antibody Nonreactive (Nonreactive)
[2024-05-29 12:24] LABS: TSH reflex Free T4 0.75 uIU/mL (0.32-4.0)
[2024-05-29 12:30] LABS: Appearance Urine Clear; Color Urine Yellow; Glucose Urine UA Negative (Negative); Leukocyte Esterase Urine Negative (Negative); Nitrite Urine Negative (Negative); Specific Gravity - Urine 1.025 (1.005-1.025); Urine Blood Negative (Negative); Urine Ketones Negative (Negative); Urine Protein Negative (Neg-Trace)
[2024-05-29 12:36] LABS: Bacteria Urine None Seen (None Seen); Hyaline Casts Urine 0-2 /LPF (0-2); RBC Urine 0-2 /HPF (0-2); Squamous Epithelial Cell Urine 0-2 /HPF (0-2); WBC Urine 0-5 /HPF (0-5)
[2024-05-31 07:13] LABS: RPR Rapid Plasma Reagin NON-REACTIVE (NON-REACTIVE)
== END 2024-05-29 10:34 | disposition home or self-care (01) ==
LOC: HO.LAB 10:33
PROVIDERS: PCP Nurse Practitioner Primary Care; Visit Provider Nurse Practitioner Primary Care
DX: Z11.3 Encounter for screening for infections with a predominantly sexual mode of transmission (principal); R53.83 Other fatigue; Z13.1 Encounter for screening for diabetes mellitus
CPT/HCPCS: 36415; 80053; 80061; 81001; 83036; 84443; 85025; 86592; 86803; 87389